=== PATIENT | female | born 1975 | race Caucasian/White ===

== ENCOUNTER 2022-06-10 04:04 | Inpatient (IN) | payer OTHER, SELFPAY ==
[2022-06-10] VITALS (8 sets, daily range): BP systolic 120–164; BP diastolic 64–92; PULSE 63–78; RESP 16–20; TEMP 36.1–37.1; O2SAT 96–98; BMI 37.1
--- NOTE | 2022-06-10 04:05 | EKG12_ITS ---
Test Reason : CP ADMIT Blood Pressure : / mmHG Vent. Rate : 068 BPM Atrial Rate : 068 BPM P-R Int : 140 ms QRS Dur : 088 ms QT Int : 408 ms P-R-T Axes : 061 039 056 degrees QTc Int : 433 ms Normal sinus rhythm Normal ECG No previous ECGs available Confirmed by DIAMOND MARTE, RAFAELA ([id number]), material expeditor SHIRA ROBLERO ([id number]) on 06/15/2022 10:50:03 AM Referred By: Confirmed By:RAFAELA FIELDS MD
--- NOTE | 2022-06-10 05:34 | CT_ITS ---
EXAM: CT HEAD WITHOUT INTRAVENOUS CONTRAST CLINICAL INDICATION: vision changes, severe headache TECHNIQUE: Multiple axial images were obtained of the head without intravenous contrast. This CT exam was performed using one or more of the following dose reduction techniques: automated exposure control, adjustment of the mA and/or kV according to patient size, and/or use of iterative reconstruction technique. This report was created using [employer] report generation technology. COMPARISON: None. FINDINGS: BRAIN AND EXTRA-AXIAL SPACES: Unremarkable. No intra- or extra-axial hemorrhage. No evidence of acute infarct. No intracranial mass or mass effect. There is preservation of the butcher/white matter interface. Posterior fossa structures are unremarkable. Ventricles are appropriate for age. No hydrocephalus. Basal cisterns are patent. BONES/JOINTS: Unremarkable. No discrete lytic or blastic abnormalities. SINUSES: Unremarkable as visualized. Clear. MASTOID AIR CELLS: Unremarkable. Clear. ORBITS: Visualized globes, extraocular muscles, optic nerves and retrobulbar fat appear unremarkable. CT/Brain/Head without Contrast IMPRESSION: Negative head/brain CT without intravenous contrast. Electronically Signed: Wally Matthew MD at 6:40 EST ,
--- NOTE | 2022-06-10 05:55 | ECHOD_ITS ---
Reason For Study: NSTEMI Procedure This was a 2D Doppler, Color Flow transthoracic echocardiogram. The study was technically difficult. Contrast injection was performed. Exam performed portable in patient room. Left Ventricle Normal left ventricle. The estimated ejection fraction is 55-60 %. Right Ventricle There is a mass in the right ventricle. Echogenic moderate size mass attached to RV free wall. Normal systolic function. Atria Normal left atrium. Normal right atrium. Mitral Valve The mitral valve is structurally normal. No prolapse or stenosis seen. Trivial mitral valve insufficiency. Tricuspid Valve Normal tricuspid valve. Aortic Valve Normal aortic valve. Pulmonic Valve The pulmonic valve is not well visualized. Great Vessels Normal aortic root. Pericardium/Pleural No pericardial effusion. There is no pleural effusion. Medication Diluted definity 1.5ml given slow IV push to enhance endocardial definition. MMode/2D Measurements & Calculations LVIDd: 5.0 cm IVSd: 1.1 cm Ao root diam: 3.0 cm LVIDs: 3.3 cm LVPWd: 1.1 cm RVDd: 3.7 cm FS: 33.7 % LAV(MOD-sp4): 63.2 ml LVAd ap4: 41.7 cm2 SV(MOD-sp4): 126.8 ml LVLd ap4: 8.7 cm EDV(MOD-sp4): 165.6 ml EDV(sp4-el): 169.9 ml LVAs ap4: 17.6 cm2 LVLs ap4: 6.8 cm ESV(MOD-sp4): 38.8 ml ESV(sp4-el): 38.8 ml EF(MOD-sp4): 76.6 % EF(sp4-el): 77.2 % SV(sp4-el): 131.1 ml LA A4 area: 22.0 cm2 LA dimension(2D): 3.9 cm RA A4 area: 20.8 cm2 Time Measurements MV dec time: 0.19 sec Doppler Measurements & Calculations MV E max [place]: 96.2 cm/sec Lat Peak E' [place]: 11.4 cm/sec Med Peak E' [place]: 14.9 cm/sec MV A max [place]: 60.8 cm/sec E/E' lat: 8.4 E/E' med: 6.5 MV E/A: 1.6 MV V2 max: 104.6 cm/sec MV dec slope: 510.4 cm/sec2 Ao V2 max: 149.2 cm/sec MV max P.4 mmHg Ao max P.9 mmHg MV V2 mean: 57.4 cm/sec Ao V2 mean: 95.9 cm/sec MV mean P.6 mmHg Ao mean P.3 mmHg MV V2 VTI: 33.8 cm Ao V2 VTI: 30.7 cm AV (velocity ratio): 0.83 LV V1 max: 104.4 cm/sec PA V2 max: 105.5 cm/sec TR max [place]: 264.1 cm/sec LV V1 max P.4 mmHg PA V2 mean: 79.9 cm/sec TR max P.9 mmHg LV V1 mean P.4 mmHg LV V1 mean: 71.4 cm/sec LV V1 VTI: 25.5 cm ECHO/Echo Complete W/ Contrast Interpretation Summary The estimated ejection fraction is 55-60 %. Echogenic moderate size mass attached to RV free wall Recommendation: Consider to evaluate with WILLIAM Ordering Physician: Emma Barros Performed By: Danielle Trujillo RCS
--- NOTE | 2022-06-10 06:26 | PCM.HP.STD ---
HPI - General General Date of Admission: 06/10/22 Date of Service: 06/10/22 Chief Complaint: Chest pain HPI Narrative The patient is a 46 y/o F w/ PMHx: Obesity, Light tobacco use (1 pack/week), recent Heavier EtOH intake over the last several months secondary to stress with ongoing divorce proceedings who reports not having been to a physician for evaluation since the of her son 14 years prior who presented initially to [facility] on 06/09/22 with history of chest discomfort, intermittent, midsternal with radiation to the neck and LUE with associated diaphoresis, described as an ache, rated 8-10/10 when occurring, noted to be intermittent x 2 weeks; however more severe with two episodes on day of OSH ED evaluation with one at 5 pm and another episode at 8:30 pm prompting EMS call. She also reports intermittent severe headache also over the last 2 weeks with vision changes on day of OSH ED presentation which were transient, reported as blurred and corrected. The headaches are severe, aching, holocephalic. EMS administered NG and zofran in route with complete resolution of her discomfort upon her presentation to their facility. At the OSH she reports having another episode following her CT scan being obtained. She reports upon presentation to [facility] on 06/10/22 being chest pain free and headache free currently. OSH ED facility work-up included: VS: 100 kg, BMI 32, VS 186/128, 80, 98.9, 94% on RA, 20 CXR: No acute cardiopulmonary findings. CTPA: No evidence of acute PE or dissection, no acute cardiopulmonary findings. EKG: SR without acute evidence of ischemia x 2. TSH 3.80 (mildly elevated) w/ follow-up FT4 8.7 (normal range) and T3U 33 (normal range), SARS COVID negative, BNP 329, CBC w/ WBC 7.1, Hgb 14.7, Plts 346 without shift, D-dimer 311, HS troponin 203.9, CMP with glucose 113 otherwise unremarkable with Na 138, K 3.5, BUN/Cr 17/0.82, unremarkable hepatic profile. Medications administered in the ED at OSH: Therapeutic lovenox x 1, zofran 4 mg. [facility] Medical History Heavy alcohol consumption Obesity Tobacco use Home Medications NK 06/10/22 [History Last Taken Unknown] Allergy/AdvReac Type Severity Reaction Status Date / Time No Known Allergies Allergy Verified 06/10/22 04:04 Family History (Updated 06/10/22 @ 05:[address] Emma Barros MD) Mother CAD (coronary artery disease) Hypertension Myocardial infarction Family History other other (Patient does not know any of her paternal family history, notes he passed when she was 18-19.) Surgical History (Updated 06/10/22 @ 05:[address] Emma Barros MD) Hx of cholecystectomy Hx of tonsillectomy Social History (Updated 06/10/22 @ 05:[address] Emma Barros MD) household members: other details: Recent ongoing divorce, currently her 14 year old son lives with her. Smoking Status: Light Smoker (<10/day) alcohol intake: current alcohol intake frequency: 0-2 drinks per day Alcohol type: wine and hard liquor details: With divorce stress, notes often 2-3 drinks/day x 5 days/wk. substance use type: does not use ROS ROS Narrative Admission Review of Systems: CONSTITUTIONAL: No weight loss, fever, chills, + weakness or fatigue. HEENT: + Transient blurred vision, headaches. Eyes: No double vision or yellow sclerae. Ears, Nose, Throat: No hearing loss, sneezing, congestion, runny nose or sore throat. SKIN: No rash or itching, lesions, wounds. CARDIOVASCULAR: + Chest pain, No palpitations, edema, orthopnea, syncopal events. RESPIRATORY: No shortness of breath, cough or sputum, wheezing, hemoptysis. GASTROINTESTINAL: + anorexia, nausea without vomiting, No diarrhea, abdominal pain, melena, BRBPR. GENITOURINARY: No dysuria, frequency, urgency or retention. NEUROLOGICAL: + headache, transient vision blurriness, dizziness, No syncope, paralysis, ataxia, numbness or tingling in the extremities, focal weakness, change in bowel or bladder control, seizure. MUSCULOSKELETAL: + muscle, back pain, joint pain or stiffness. HEMATOLOGIC: No anemia, bleeding or bruising. LYMPHATICS: No enlarged nodes. No history of splenectomy. PSYCHIATRIC: + Suspected underlying depression and anxiety. ENDOCRINOLOGIC: + reports of sweating, cold or heat intolerance. No polyuria or polydipsia. ALLERGIES: No history of asthma, hives, eczema or rhinitis. Physical Exam Narrative Physical Examination: General: Awake, alert, oriented x 3 and cooperative, seated upright in the PCU bed in no apparent distress; however, crying following discussions about current health status, admits increased stress with recent divorce proceedings. Skin: Normal color, normal turgor, no icterus, no cyanosis. HEENT: AT/NC, EOMI, PERRLA, MMM, mild narrowing junction bilaterally, no carotid bruits or JVD noted. Lungs: CTA bilaterally, moderate effort, mild decrease BL bases, no rales, ronchi or wheezing. Heart: Regular rate and rhythm; no gallop, rub audible. Abdomen: Soft, obese, NTTP, ND, distant normal BS, no HSM. Extremities: No cyanosis, clubbing, or edema. Neurological: Patient awake, alert, oriented as noted, cognitive function intact; pupils equally reactive to light and accommodation, cranial nerves II-XII grossly normal, moving all 4 extremities, no focal deficits, strength intact. Psychiatric: Affect appears fatigued, tearful with discussions, do suspect underlying anxiety and depression. Assessment & Plan Assessment/Plan (1) NSTEMI, initial episode of care: PLAN: Plan The patient is a 46 y/o F w/ PMHx: Obesity, Light tobacco use (1 pack/week), recent Heavier EtOH intake over the last several months secondary to stress with ongoing divorce proceedings who reports not having been to a physician for evaluation since the of her son 14 years prior who presented initially to [facility] on 06/09/22 with history of chest discomfort, intermittent, midsternal with radiation to the neck and LUE with associated diaphoresis, described as an ache, rated 8-10/10 when occurring, noted to be intermittent x 2 weeks; however more severe with two episodes on day of OSH ED evaluation with one at 5 pm and another episode at 8:30 pm prompting EMS call. #1. Chest Pain w/ Acute NSTEMI: EKG in ED w/ sinus rhythm with no acute evidence of ischemia x2, CXR w/ no acute cardiopulmonary findings, CTPA with no acute evidence of pulmonary embolism or dissection. Trop elevated, 203.9. Will admit to PCU, maintain on a monitored bed, continue serial cardiac enzymes and EKGs. Obtain magnesium level upon admission. Patient administered therapeutic Lovenox x1 at outside facility prior to transition, will continue pending cardiology assessment. Will maintain n.p.o. status with judicious IV fluids. Continue medical management w/ asa, add moderate dose BB, will also add moderate dose CARLOS ALBERTO inhibitor given significant hypertension upon outside facility presentation, add high-dose statin w/ AM FLP. May need further blood pressure adjustments pending further blood pressure trending. Echocardiogram requested. Given headache history and vision changes to be cautious will obtain CT head, suspect likely related with her hypertension which has been untreated. ASA, NG, morphine. #2. Elevated BP of hypertensive diagnosis: As noted will place on moderate dose beta-abelino therapy given acute presentation with NSTEMI in addition to a moderate dose CARLOS ALBERTO inhibitor given notable blood pressure elevation at outside facility however will further adjust and alter pending, as needed IV hydralazine. Given headache history and vision changes to be cautious will obtain CT head, suspect likely related with her hypertension which has been untreated. #3. Subclinical hypothyroidism: At outside facility for unclear reasons they did obtain a TSH which was mildly elevated at 3.80 however free T4 and T3 were normal levels consistent with subclinical hypothyroidism, given her acute presentation with NSTEMI will recommend that she follow-up with PCP and have labs reassessed outpatient. #4. Heavier EtOH Intake: Increased intake over the last several months with divorce proceedings. Discussed appropriate amount for patient and encouraged strongly heathier methods of dealing with her stress including lifestyle/diet changes as well as counseling and treatment of depression/anxiety likely underlying. #5. Tobacco use: Patient with a tobacco use history reporting approximately 1 pack lasting her 1 week although she does report increased smoking with increased alcohol consumption ongoing since she was a teen. Encouraged cessation, inpatient consultation per RT, NR if desired. #6. Obesity: Weight loss and lifestyle changes encouraged. #7. DVT prophylaxis: SCDs, continue therapeutic Lovenox. Admission Evaluation Time spent evaluating chart, patient history, patient evaluation, care planning and discussion with specialists: 76 minutes. Charges/Coding Visit Charges Inpatient E&M: 86395 Init Hosp L3
[2022-06-10] MEDS: 0.9% Normal Saline 1,000 ML 100 ML IV (06:45)
[2022-06-10] MEDS: Metoprolol Tartrate 25 MG Tablet PO ×2 (06:46→22:00)
[2022-06-10 07:08] LABS: Absolute Lymphocyte Count 2.39 X10^3/uL (0.83-4.51); Absolute Neutrophil Count 3.7 X10^3/uL (2.0-7.7); Basophil# 0.05 X10^3/uL; Basophil% 0.7 % (0-1); Eosinophil# 0.16 X10^3/uL; Eosinophils% 2.4 % (0-5); Hematocrit 40.8 % (37-47); Hemoglobin 13.2 g/dL (12.0-15.0); Lymphocyte # 2.39 X10^3/ul (0.83-4.51); Lymphocyte % 35.2 % (19-41); Mean Corp Hgb Conc 32.4 g/dL (32-36); Mean Corpuscular Hgb 32.7 pg (27.0-32.0); Mean Platelet Vol. 9.4 fl (6.2-12.0); Monocyte# 0.52 X10^3/uL; Monocyte% 7.7 % (0-10); NRBC Flagged by Analyzer 0 % (0-5); Neutrophil # 3.66 X10^3/uL (2.7-7.7); Neutrophil % 53.9 % (47-70); Platelet Count 269 K/mm3 (150-450); RBC Distribution Width CV 15.2 % (11.6-14.6); RBC Distribution Width SD 57.3 fl (35.1-43.9); Red Blood Count 4.04 M/mm3 (4.2-5.4); White Blood Count 6.8 K/mm3 (4.4-11.0)
[2022-06-10 07:52] LABS: Phosphorus 3.3 mg/dL (2.5-4.9)
[2022-06-10 07:53] LABS: ALB/GLOB Ratio 1.1 RATIO (0.9-2.4); AST(SGOT) 20 U/L (15-37); Alanine Aminotransfer ALT/SGPT 30 U/L (13-56); Albumin, Serum 3.9 g/dL (3.2-5.0); Alkaline Phosphatase 70 U/L (45-117); Anion Gap 10 (5-15); BUN 16 mg/dL (7-18); Chloride 107 mmol/L (98-107); Creatinine, Serum 0.76 mg/dL (0.55-1.02); EST Glomerular Filtration Rate 86 mL/min (>60); Est Glom Filt Rate - Afr Amer 105 mL/min (>60); Estimated Creatinine Clearance 95.63 ml/min; Globulin 3.4 g/dL (2.2-4.2); Glucose 105 mg/dL (74-106); Magnesium 2.3 mg/dL (1.6-2.6); Protein, Total 7.3 g/dL (6.4-8.2); Sodium Level 138 mmol/L (136-145); Troponin-I HS 187 pg/mL (3.0-54.0)
[2022-06-10 08:55] LABS: Troponin-I HS 172 pg/mL (3.0-54.0)
[2022-06-10 09:46] LABS: Cholesterol 168 mg/dL (200); High Density Lipoprotein 35 mg/dL; Triglycerides 194 mg/dL; Very Low Density Lipoprotein 39 mg/dL (5-40)
[2022-06-10] MEDS: Enoxaparin 100 MG/ML Syringe SC (10:13)
[2022-06-10] MEDS: Lisinopril 10 MG Tablet PO (10:13)
[2022-06-10] MEDS: Aspirin E.C. 81 MG Tablet PO (10:13)
--- NOTE | 2022-06-10 11:40 | CM.ED ---
Per RN patient has no PCP and reports recent alcohol use due to divorce. SW met with patient briefly. Patient was provided with PCP list and advised that [facility] is taking new patients. SW asked patient if she wanted any AOD resources or counseling resources and patient declined any resources for AOD or counseling. Per patient will be here through the weekend. Mile MUÑOZ
--- NOTE | 2022-06-10 12:04 | CASEMGMT ---
GUERLINE RUDD PIPE AND TEST SUPERVISOR CM to room to meet with patient for initial transition planning/care coordination assessment. GUERLINE RUDD introduced self and role at [facility]. Pt voices understanding and consents to assessment at this time. Pt resting in bed in no distress at this time. Mother, father, and grandson @ bedside and pt agreeable to them being present during assessment. Pt is A/O at this time and answers all questions appropriately. Care providers, pharmacy, and demographics verified/updated at this time. PCP: No PCP. BUDDY has provided pt w/list of providers. Specialists: None Preferred Pharmacy: [facility] Retail Insurance: [facility] Prescription Benefit: Yes Living Will/HPOA: Pt does not currently have LW/HCPOA. Pt states she is legally . Pt made aware that her would be her medical decision maker, should she be unable to make decisions, unless POA has been completed designating someone else. Pt states she would like to complete AD while @ [facility]. Mile GOODWIN, made aware. LNOK: (legally ), parents: Chun and Deb Hurtado Living Arrangements: Lives w/parents, brother, and son in 2-story home. Independent. Transportation: Pt states drives self and states no transportation concerns at this time. DME: Denies using any DME HHC/SNF: No hx of either. No needs identified. Pt wishes to return home and states has no concerns with going home at time of discharge. CM to follow for any discharge planning/needs. Pt voices no further concerns/needs at this time. Advised pt to ask for CM if any further questions/concerns/needs arise. Voices understanding. PLAN: Home Iam CLINE RN, CM
[2022-06-10 13:38] LABS: Troponin-I HS 153 pg/mL (3.0-54.0)
[2022-06-10] MEDS: Ondansetron 4 MG/2 ML Vial IV (13:50)
[2022-06-10] MEDS: 0.9% Saline Lock 10 ML Syringe IV ×2 (13:51→22:00)
--- NOTE | 2022-06-10 13:56 | CASEMGMT ---
BUDDY was advised by GUERLINE RUDD that patient wants advanced directives. BUDDY printed out [facility] advanced directives packet. As patient did have visitors BUDDY advised that the paperwork could be completed later. Mlie MUÑOZ
--- NOTE | 2022-06-10 15:30 | CON.PCM.CA_ITS ---
Assessment & Plan Assessment/Plan (1) Subclinical hypothyroidism: (2) Elevated BP without diagnosis of hypertension: (3) NSTEMI, initial episode of care: PLAN: Plan 46-year-old patient with symptoms of chest pain, retrosternal Associated with diaphoresis, nausea. Chest pain improved since admission. This morning she was nauseated she was given some Zofran which relieved her symptoms. Patient with history of tobacco use. And recently had heavier ethanol intake, patient has been under stress.-, Recently Cardiac exam essentially normal Cardiovascular system recommendations; 1. Cardiopulmonary Covid with high sensitive troponin elevated Patient currently on medical treatment for non-STEMI with Lovenox, aspirin, atorvastatin Beta-abelino metoprolol hydralazine, lisinopril for blood pressure control. Patient remained stable clinically no further episode of chest pain. Will be evaluated further with left heart catheterization/right radial artery approach on Sunday. 2. Abnormal echocardiogram with evidence of echogenic mass moderate in size noted in the RV. Will evaluate further with WILLIAM. 3. I discussed cardiac care plan with the patient, nursing staff. HPI Consult Data Date of Consult: 06/10/22 HPI Narrative Reason for Consultation: Patient with chest pain/non-STEMI HPI Narrative: LIZ VILA, is a 46 F who presents [facility] Medical History Heavy alcohol consumption Obesity Tobacco use Home Medications NK 06/10/22 [History Last Taken Unknown] Allergy/AdvReac Type Severity Reaction Status Date / Time No Known Allergies Allergy Verified 06/10/22 04:04 Family History (Updated 06/10/22 @ 05:[address] Emma Barros MD) Mother CAD (coronary artery disease) Hypertension Myocardial infarction Family History other Surgical History (Updated 06/10/22 @ 05:[address] Emma Barros MD) Hx of cholecystectomy Hx of tonsillectomy Social History (Updated 06/10/22 @ 05:[address] Emma Barros MD) household members: other details: Recent ongoing divorce, currently her 14 year old son lives with her. Smoking Status: Light Smoker (<10/day) alcohol intake: current alcohol intake frequency: 0-2 drinks per day Alcohol type: wine and hard liquor details: With divorce stress, notes often 2-3 drinks/day x 5 days/wk. substance use type: does not use Physical Exam Cardio Cardio Narrative: Cardiac rhythm is normal sinus rhythm Cardiovascular exam S1-S2 regular No systolic or diastolic murmur Chest examination clear to auscultation bilateral. Examination lower extremity no clubbing no cyanosis no lower extremity edema. Risk Stratification Risk Stratification Applicable: Yes Age >/= 65: No >/= 3 CAD Risk Factors (HTN, HLD, DM, family hx of CAD, or current smoker): Yes Aspirin Use in the Past 7 Days: Yes Severe Angina (>/= episodes in 24 hours): Yes EKG ST Changes >/= 0.5mm: No Positive Cardiac Marker: Yes JENNIFER Risk Stratification Score: 4 JENNIFER % Risk: 20% Risk Objective Data Vital Signs: Vital Signs Temp Pulse Resp BP Pulse Ox O2 Del Method 98.7 F 64 16 148/75 H 97 Room Air 06/10/22 10:05 06/10/22 10:05 06/10/22 10:05 06/10/22 10:05 06/10/22 10:05 06/10/22 14:00 Oxygen Delivery Method Room Air Weight: 251 lb 12.286 oz Body Mass Index (BMI) 37.1 Intake & Output: Intake and Output for Last 24 Hours 06/08/22 06/09/22 06/10/22 23:59 23:59 23:59 Intake Total 400 / 400 Balance 400 / 400 Lab / Micro Data Result Diagrams: 06/10/22 06:10 06/10/22 06:10 Labs: Laboratory Results - last 24 hr 06/10/22 06:10: Sodium 138, Potassium 4.0, Chloride 107, Carbon Dioxide 21.0, Anion Gap 10, BUN 16, Creatinine 0.76, Estim Creat Clear Calc 95.63, Est GFR (MDRD) Af Amer 105, Est GFR (MDRD) Non-Af 86, BUN/Creatinine Ratio 21.0 H, Glucose 105, Calcium 9.0, Magnesium 2.3, Total Bilirubin 0.80, AST 20, ALT 30, Alkaline Phosphatase 70, Troponin I High Sens 187 H*, Total Protein 7.3, Albumin 3.9, Globulin 3.4, Albumin/Globulin Ratio 1.1 06/10/22 06:10: WBC 6.8, RBC 4.04 L, Hgb 13.2, Hct 40.8, MCV 101.0 H, MCH 32.7 H , MCHC 32.4, RDW Std Deviation 57.3 H, RDW Coeff of Alyse 15.2 H, Plt Count 269, MPV 9.4, Immature Gran % (Auto) 0.100, Neut % (Auto) 53.9, Lymph % (Auto) 35.2, [place] % (Auto) 7.7, Eos % (Auto) 2.4, Baso % (Auto) 0.7, Absolute Neuts (auto) 3.7, Absolute Lymphs (auto) 2.39, Nucleated RBC % 0 06/10/22 06:10: Phosphorus 3.3 06/10/22 08:00: Troponin I High Sens 172 H* 06/10/22 08:00: Triglycerides 194, Cholesterol 168, LDL Cholesterol 94, VLDL Cholesterol 39, HDL Cholesterol 35 L 06/10/22 12:28: Troponin I High Sens 153 H* Cardiology Labs/Tests 06/10/22 06:10: Sodium 138, Potassium 4.0, Chloride 107, Carbon Dioxide 21.0, Anion Gap 10, BUN 16, Creatinine 0.76, Est GFR (MDRD) Af Amer 105, Est GFR (MDRD) Non-Af 86, BUN/Creatinine Ratio 21.0 H, Glucose 105, Calcium 9.0, Magnesium 2.3, Total Bilirubin 0.80 06/10/22 06:10: WBC 6.8, RBC 4.04 L, Hgb 13.2, Hct 40.8, MCV 101.0 H, MCH 32.7 H , MCHC 32.4, Plt Count 269, MPV 9.4, Immature Gran % (Auto) 0.100, Neut % (Auto) 53.9, Lymph % (Auto) 35.2, [place] % (Auto) 7.7, Eos % (Auto) 2.4, Baso % (Auto) 0.7, Absolute Neuts (auto) 3.7, Nucleated RBC % 0 06/10/22 06:10: Phosphorus 3.3 06/10/22 08:00: Triglycerides 194, Cholesterol 168, LDL Cholesterol 94, VLDL Cholesterol 39, HDL Cholesterol 35 L Rhythm: Normal sinus rhythm EKG: Normal sinus rhythm, no ST?abnormality noted ECHO % LV function preserved, moderate sized echogenic mass noted in the free RV wall Radiography Diagnostic Testing: Radiology Impression Brain CT 06/10/22 05:34 IMPRESSION: Negative head/brain CT without intravenous contrast. Electronically Signed: Wally Matthew MD at 6:40 EST , Echocardiogram 06/10/22 05:55 Interpretation Summary The estimated ejection fraction is 55-60 %. Echogenic moderate size mass attached to RV free wall Recommendation: Consider to evaluate with WILLIAM Ordering Physician: Emma Barros Performed By: Danielle Trujillo RCS
--- NOTE | 2022-06-10 18:26 | PCM.HOSP.N ---
Hospitalist Note Patient was seen and examined today, at the time my examination she had a slight amount of chest discomfort which resolved during the time I was in the room. I talked with cardiology about her care today, she will remain on subcu Lovenox, a beta-abelino, a statin, and a baby aspirin for now, the plan is for the patient undergo a cardiac catheterization this Sunday. Patient had an echocardiogram today which did not show any evidence of impaired EF or significant valvular abnormality.
[2022-06-10] MEDS: Atorvastatin Calcium 80 MG Tablet PO (22:00)
[2022-06-11] VITALS (7 sets, daily range): BP systolic 123–173; BP diastolic 75–108; PULSE 54–83; RESP 16–18; TEMP 36.6–37.1; O2SAT 95–100
[2022-06-11] MEDS: 0.9% Saline Lock 10 ML Syringe IV ×4 (08:35→14:07)
--- NOTE | 2022-06-11 09:12 | EKG12_ITS ---
Test Reason : AM EKG Blood Pressure : / mmHG Vent. Rate : 073 BPM Atrial Rate : 073 BPM P-R Int : 146 ms QRS Dur : 090 ms QT Int : 382 ms P-R-T Axes : 053 030 019 degrees QTc Int : 420 ms Normal sinus rhythm with sinus arrhythmia Nonspecific ST abnormality Abnormal ECG When compared with ECG of 11-JUN-2022 09:13, MANUAL COMPARISON REQUIRED, DATA IS UNCONFIRMED Confirmed by DIAMOND MARTE, RAFAELA ([id number]), acquisition editor SHIRA ROBLERO ([id number]) on 06/15/2022 10:46:00 AM Referred By: Confirmed By:RAFAELA FIELDS MD
[2022-06-11] MEDS: Ondansetron 4 MG/2 ML Vial IV ×2 (09:28→11:10)
[2022-06-11] MEDS: LORazepam 2 MG/ML Syringe 0.5 MG IV (11:10)
--- NOTE | 2022-06-11 12:56 | PCM.PN.CARD ---
Objective Data Vital Signs: Vital Signs Temp Pulse Resp BP Pulse Ox O2 Del Method 98.1 F 54 L 16 173/79 H 100 Room Air 06/11/22 11:20 06/11/22 11:20 06/11/22 11:20 06/11/22 11:20 06/11/22 11:20 06/11/22 11:20 Oxygen Delivery Method Room Air Weight: 253 lb 8.505 oz Body Mass Index (BMI) 37.1 Intake & Output: Intake and Output for Last 24 Hours 06/09/22 06/10/22 06/11/22 23:59 23:59 23:59 Intake Total 1400 / 1400 Balance 1400 / 1400 Lab / Micro Data Result Diagrams: 06/10/22 06:10 06/10/22 06:10 Labs: Laboratory Results - last 24 hr 06/10/22 12:28: Troponin I High Sens 153 H* Micro: Microbiology 06/11/22 11:15 Nasal Secretion SARS-CoV-2 Antigen (Rapid) - Final Cardiology Labs/Tests Rhythm: EKG: Repeat EKG showed no significant change from prior with normal sinus No ST?the abnormalities noted on repeat EKG today ECHO: LV function preserved, 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 Physical Exam Cardio Cardio Narrative: Cardiac rhythm remains sinus Cardiovascular exam S1-S2 regular Chest exam clear to auscultation bilateral Examination lower extremity no lower extremity edema noted Pedal pulses palpable Assessment & Plan Assessment/Plan (1) Elevated BP without diagnosis of hypertension: (2) NSTEMI, initial episode of care: PLAN: Plan This patient has nausea vomiting and diarrhea today Mild chest discomfort which resolved I reviewed the current medication Cardiac care plan recommendations; This patient has been under stress and she had history of smoking Her cardiac biomarkers has been elevated with high sensitive troponins with a clinical diagnosis of non-ST elevation ND. 1. Continue the current medical treatment 2. We will proceed with left heart cath/WILLIAM on Sunday.
[2022-06-11] MEDS: proCHLORPERazine 10 MG/2 ML Vial IV (14:04)
--- NOTE | 2022-06-11 17:02 | PN.HOSP_ITS ---
Subjective Subjective Patient was seen and examined today, she complains of some nausea and vomiting today along with some diarrhea to nursing, she is scheduled to undergo a heart catheterization tomorrow, I talked briefly with cardiology about her care today. Objective Data Objective Data Vital Signs: Vital Signs Temp Pulse Resp BP Pulse Ox O2 Del Method 98.1 F 62 16 161/75 H 95 Room Air 06/11/22 14:12 06/11/22 14:12 06/11/22 14:12 06/11/22 14:12 06/11/22 14:12 06/11/22 14:12 Oxygen Delivery Method Room Air Weight: 115 kg Body Mass Index (BMI) 37.1 Intake & Output: Intake and Output for Last 24 Hours 06/09/22 06/10/22 06/11/22 23:59 23:59 23:59 Intake Total 1400 / 1400 240 / 240 Balance 1400 / 1400 240 / 240 Lab / Micro Data Result Diagrams: 06/10/22 06:10 06/10/22 06:10 Micro: Microbiology 06/11/22 11:15 Nasal Secretion SARS-CoV-2 Antigen (Rapid) - Final Physical Exam Const alert, oriented x3, no apparent distress and healthy appearing General Appearance: cooperative, well kempt and well developed Orientation / Consciousness: awake, oriented to person, oriented to place and oriented to time HEENT normocephalic and moist oral mucous membranes Eyes PERRL, EOMs intact bilaterally and conjunctivae normal Neck supple, no JVD, thyroid normal and no carotid bruits General: trachea midline Resp normal respiratory effort and clear to auscultation bilaterally Auscultation: Negative for rales, rhonchi or wheezes Cardio regular rate, regular rhythm, no murmurs, no rub and no gallops GI normal to inspection, nondistended, normoactive bowel sounds, soft to palpation, non-tender and non-distended Extremity no clubbing, cyanosis or edema Skin no rashes or lesions noted General Skin Exam: no breakdown Neuro oriented x3, CN's II-XII intact bilaterally, no focal motor deficits and no sensory deficits noted Sensorium / Orientation: awake and alert Speech: speech normal Psych affect normal Assessment & Plan Assessment/Plan (1) NSTEMI, initial episode of care: PLAN: Plan 1. [id number] will remain on her present medications, I discussed her ca re with cardiology today, patient will undergo a cardiac catheterization tomorrow #2 nausea and vomiting-etiology unclear, patient will be treated symptomatically, she also had 1 episode of diarrhea today. #3 elevated blood pressure-we will monitor patient's blood pressure today, I do not feel that she needs additional medications for this at this time Total clinical time spent by myself addressing the patient's medical issues, reviewing all the data, and collaborating with patient's care team: 35 minutes Charges/Coding Visit Charges Inpatient E&M: 98628 Subs Hosp L2
[2022-06-11] MEDS: Metoprolol Tartrate 25 MG Tablet PO (21:57)
[2022-06-11] MEDS: Atorvastatin Calcium 40 MG Tablet PO (21:58)
[2022-06-11] MEDS: Enoxaparin 100 MG/ML Syringe SC (21:58)
[2022-06-12] VITALS (12 sets, daily range): BP systolic 81–151; BP diastolic 55–98; PULSE 59–85; RESP 14–20; TEMP 36.4–36.9; O2SAT 93–98
[2022-06-12] MEDS: 0.9% Saline Lock 10 ML Syringe IV (03:49)
--- NOTE | 2022-06-12 05:55 | EKG12_ITS ---
Test Reason : CP Blood Pressure : / mmHG Vent. Rate : 057 BPM Atrial Rate : 057 BPM P-R Int : 150 ms QRS Dur : 090 ms QT Int : 410 ms P-R-T Axes : 040 028 028 degrees QTc Int : 399 ms Sinus bradycardia Otherwise normal ECG When compared with ECG of 10-JUN-2022 05:30, MANUAL COMPARISON REQUIRED, DATA IS UNCONFIRMED Confirmed by DIAMOND MARTE, RAFAELA ([id number]), telegraph editor SHIRA ROBLERO ([id number]) on 06/15/2022 10:47:48 AM Referred By: LEONIDES Confirmed By:RAFAELA FIELDS MD
[2022-06-12 06:15] LABS: Absolute Lymphocyte Count 1.39 X10^3/uL (0.83-4.51); Absolute Neutrophil Count 9.9 X10^3/uL (2.0-7.7); Basophil# 0.03 X10^3/uL; Basophil% 0.3 % (0-1); Hemoglobin 15.8 g/dL (12.0-15.0); Lymphocyte # 1.39 X10^3/ul (0.83-4.51); Lymphocyte % 11.7 % (19-41); Mean Corp Hgb Conc 31.6 g/dL (32-36); Mean Corpuscular Hgb 33.4 pg (27.0-32.0); Mean Corpuscular Volume 105.7 fL (81-99); Mean Platelet Vol. 9.8 fl (6.2-12.0); Monocyte# 0.52 X10^3/uL; Monocyte% 4.4 % (0-10); NRBC Flagged by Analyzer 0 % (0-5); Neutrophil # 9.91 X10^3/uL (2.7-7.7); Neutrophil % 83.1 % (47-70); Platelet Count 295 K/mm3 (150-450); RBC Distribution Width CV 14.8 % (11.6-14.6); RBC Distribution Width SD 58.5 fl (35.1-43.9); Red Blood Count 4.73 M/mm3 (4.2-5.4); White Blood Count 11.9 K/mm3 (4.4-11.0)
[2022-06-12] MEDS: Lisinopril 10 MG Tablet PO (06:21)
[2022-06-12] MEDS: Aspirin E.C. 81 MG Tablet PO (06:21)
[2022-06-12] MEDS: Metoprolol Tartrate 25 MG Tablet PO (06:21)
[2022-06-12 06:52] LABS: ALB/GLOB Ratio 1.2 RATIO (0.9-2.4); AST(SGOT) 22 U/L (15-37); Alanine Aminotransfer ALT/SGPT 35 U/L (13-56); Albumin, Serum 4.6 g/dL (3.2-5.0); Alkaline Phosphatase 74 U/L (45-117); Anion Gap 14 (5-15); BUN 16 mg/dL (7-18); BUN/Creat Ratio 20.6 RATIO (10-20); Calcium,Total 9.9 mg/dL (8.5-10.1); Chloride 101 mmol/L (98-107); Creatinine, Serum 0.78 mg/dL (0.55-1.02); EST Glomerular Filtration Rate 84 mL/min (>60); Est Glom Filt Rate - Afr Amer 102 mL/min (>60); Estimated Creatinine Clearance 93.18 ml/min; Glucose 112 mg/dL (74-106); Potassium 4.1 mmol/L (3.5-5.1); Protein, Total 8.6 g/dL (6.4-8.2); Sodium Level 135 mmol/L (136-145)
[2022-06-12 06:56] LABS: Prothrombin Time (Protime)PT. 13.1 SECONDS (11.7-14.9)
[2022-06-12 06:57] LABS: Partial Thromboplast Time 42.6 Seconds (24.1-36.2)
[2022-06-12] MEDS: 0.9% Normal Saline 1,000 ML 15 ML IV (07:48)
[2022-06-12] MEDS: proCHLORPERazine 10 MG/2 ML Vial 5 MG IV (07:49)
--- NOTE | 2022-06-12 08:42 | PN.CARD_ITS ---
Subjective Subjective The patient was seen and evaluated. Appears to be doing well. No complaints. Underwent cardiac catheterization today. Objective Data Vital Signs: Vital Signs Temp Pulse Resp BP Pulse Ox O2 Del Method 97.6 F L 73 18 133/72 H 94 Room Air 06/12/22 06:14 06/12/22 06:21 06/12/22 06:14 06/12/22 06:14 06/12/22 06:14 06/12/22 08:05 Oxygen Delivery Method Room Air Weight: 249 lb 1.957 oz Body Mass Index (BMI) 37.1 Intake & Output: Intake and Output for Last 24 Hours 06/10/22 06/11/22 06/12/22 23:59 23:59 23:59 Intake Total 1400 / 1400 240 / 240 Balance 1400 / 1400 240 / 240 Lab / Micro Data Result Diagrams: 06/12/22 05:22 06/12/22 05:22 Labs: Laboratory Results - last 24 hr 06/12/22 05:22: WBC 11.9 H, RBC 4.73, Hgb 15.8 H, Hct 50.0 H, MCV 105.7 H, MCH 33.4 H, MCHC 31.6 L, RDW Std Deviation 58.5 H, RDW Coeff of Alyse 14.8 H, Plt Count 295, MPV 9.8, Immature Gran % (Auto) 0.500, Neut % (Auto) 83.1 H, Lymph % (Auto) 11.7 L, [place] % (Auto) 4.4, Eos % (Auto) 0.0, Baso % (Auto) 0.3, Absolute Neuts (auto) 9.9 H, Absolute Lymphs (auto) 1.39, Nucleated RBC % 0 06/12/22 05:22: PT 13.1, INR 1.0, APTT 42.6 H 06/12/22 05:22: Sodium 135 L, Potassium 4.1, Chloride 101, Carbon Dioxide 20.0 L , Anion Gap 14, BUN 16, Creatinine 0.78, Estim Creat Clear Calc 93.18, Est GFR (MDRD) Af Amer 102, Est GFR (MDRD) Non-Af 84, BUN/Creatinine Ratio 20.6 H, Glu cose 112 H, Calcium 9.9, Total Bilirubin 1.10 H, AST 22, ALT 35, Alkaline Phosphatase 74, Total Protein 8.6 H, Albumin 4.6, Globulin 4.0, Albumin/Globulin Ratio 1.2 Micro: Microbiology 06/11/22 11:15 Nasal Secretion SARS-CoV-2 Antigen (Rapid) - Final Cardiology Labs/Tests 06/12/22 05:22: WBC 11.9 H, RBC 4.73, Hgb 15.8 H, Hct 50.0 H, MCV 105.7 H, MCH 33.4 H, MCHC 31.6 L, Plt Count 295, MPV 9.8, Immature Gran % (Auto) 0.500, Neut % (Auto) 83.1 H, Lymph % (Auto) 11.7 L, [place] % (Auto) 4.4, Eos % (Auto) 0.0, Bas o % (Auto) 0.3, Absolute Neuts (auto) 9.9 H, Nucleated RBC % 0 06/12/22 05:22: PT 13.1, INR 1.0, APTT 42.6 H 06/12/22 05:22: Sodium 135 L, Potassium 4.1, Chloride 101, Carbon Dioxide 20.0 L , Anion Gap 14, BUN 16, Creatinine 0.78, Est GFR (MDRD) Af Amer 102, Est GFR (MDRD) Non-Af 84, BUN/Creatinine Ratio 20.6 H, Glucose 112 H, Calcium 9.9, Total Bilirubin 1.10 H Rhythm: EKG: ECHO: Stress Test: Cardiac Cath: PCI: CT Surgery: Holter monitor: EPS: PPM: CXR: Chest CT Scan: Physical Exam Const alert, oriented x3 and no apparent distress General Appearance: cooperative HEENT hearing grossly normal bilaterally Head and Scalp: atraumatic Eyes EOMs intact bilaterally Neck General: normal visual inspection Chest inspection of chest normal and palpation of chest normal Resp normal respiratory effort Auscultation: clear to auscultation bilaterally Cardio regular rate, regular rhythm, S1 normal heart sound and S2 normal heart sound Jugular Venous Distention: JVD GI normal to inspection, nondistended, normoactive bowel sounds Extremity normal capillary refill and no pedal edema Peripheral Pulses: Yes pulses 2+ throughout and femoral pulses present Skin no rashes or lesions noted Neuro oriented x3 and CN's II-XII intact bilaterally Psych Appearance: grossly normal and appropriate Assessment & Plan Assessment/Plan (1) NSTEMI, initial episode of care: PLAN: Patient was noted to have mild cardiac enzyme elevation. Cardiac catheterization today demonstrated no obstructive coronary disease. Suspect the above was secondary to demand ischemia from stress. Will recommend discharge for outpatient follow-up. This will be her primary physician. (2) Elevated BP without diagnosis of hypertension: PLAN: Patient can continue CARLOS ALBERTO inhibitor at the present time. Thank you for allowing me to participate in the care of your patient. Please don't hesitate to call if any issues arise.
--- NOTE | 2022-06-12 08:50 | CL.D_ITS ---
Patient Name: LIZ VILA Study Date: 06/12/2022 Performing: Mauricio Calderón MD Ht: 69 inches 175.26 cm : 1975 Wt: 249.12 lbs 113 kg Age: 46 Gender: female BSA: 2.27 PROCEDURE(S) PERFORMED [id number])LHC/COR/LV CLINICAL PROFILE AND INDICATIONS Indications: Suspected CAD Heart Failure: None Stress/Imaging Stress/Image Study Performed: No CAD Presentations: Non-STEMI. Symptom onset Date/Time: 06/10/22 Time Not Available CONCLUSIONS Normal coronary arteries Normal LV size, wall motion,and systolic function RECOMMENDATIONS Medical therapy DESCRIPTION OF PROCEDURE The patient arrived to the procedure lab. The risks and benefits of the procedure as well as a full description of our services here and current unavailability of surgical backup were fully explained to the patient and/or their significant other prior to the catheterization. The Timeout was completed, verifying the correct patient and procedure. The patient's procedural site was prepped and draped in the usual fashion. Local anesthetic was given subcutaneously to right radial region with Lidocaine 2%. Using a modified Seldinger technique, arterial access was obtained via the right radial artery, a 6Fr sheath was inserted. Right Coronary Artery selective angiography was then performed in multiple views using a 5 Fr. 4.0 [place] catheter. Left Coronary Artery selective angiography was performed in multiple views using a 5 Fr. 4.0 [place] catheter. Left Ventriculography was performed in [place]I projection using a 5 Fr. [place] catheter. LV to AO pullback pressures were then recorded.The arterial sheath was pulled and a TR Band was applied for hemostasis CORONARY ANGIOGRAPHY DOMINANCE: Right Dominant LEFT HEART ASSESSMENT Left Ventricular Ejection Fraction: by LV Gram 65 % Normal LV wall motion Normal Left Ventricular systolic function Normal Left Ventricular systolic function LEFT MAIN: Angiographically normal LEFT ANTERIOR DESCENDING ARTERY: Angiographically normal CIRCUMFLEX ARTERY: Angiographically normal RIGHT CORONARY ARTERY: Angiographically normal COMPLICATIONS No Complications PROCEDURE MEDICATIONS Fentanyl 50 mcg IV Versed 1 mg IV Versed 1 mg IV Heparin given IA 06/12/2022 08:28:49 Verapamil 2.5mg, Ntg 100mcgs, 3000 units of Heparin given IA 06/12/2022 08:28:49 SUMMARY OF HEMODYNAMIC DATA Time AIR REST ECG 08:11:48 AO 88/59 (71) SA 08:30:45 LV 110/6, 12 08:38:21 LV 108/7, 11 08:38:30 LV 117/8, 13 08:38:51 LV 110/8, 17 08:38:59 LVp 112/6, 13 08:39:04 AOp 121/-8 (72) 08:39:11 Signed By Mauricio Calderón MD On 06/12/2022 08:49:04 Mauricio Calderón MD
--- NOTE | 2022-06-12 10:02 | PCM.DC ---
Discharge Instructions Diet Discharge Diet: No restrictions Activity Discharge Activity: Return to Normal Activity Return to work on:: 06/15/22 Weight Bearing Status: Full weight bearing Follow Up Care Test Results: Test results from this visit will be discussed in further detail at your follow-up appointment, if applicable. Discharge Plan Admission Admit Date/Time: 06/10/22 05:01 Primary Reason for Your Visit: hypertension, elevated troponin Attending Provider: Morro Man Primary Care Provider: Matilda Preston Consulting Providers: Emma Barros Farouk Discharge Orders/Prescriptions Prescriptions: No Action NK Referrals / Follow Up: [facility] [Non-Staff] - See Referral Note (as scheduled) Carmen Back [employer] DEVELOPER, [employer] DEVELOPER-C [Non-Staff -Ordering Privileges] - 06/20/22 9:15 am (Your appt is at the [facility] in [place] ) Disposition Disposition (needs filled in before D/C Order can be placed): Home, Self Care
--- NOTE | 2022-06-12 10:18 | DS.PCM_ITS ---
Providers Date of Admission: 06/10/22 Date of Discharge: 06/12/22 Primary Care Physician: Dr. Matilda Preston MD Consultations 06/10/22 07:00 Consult: Cardiology Routine Consulting Provider: Kobe Sheets Reason for Consult: Chest pain, NSTEMI EMERGENT Consult: No MD Notified: Yes Date Notified: 06/10/22 Time Notified: 06:39 Method of Notification: Text Reason For Visit: NSTEMI Diagnosis Discharge Diagnosis (1) NSTEMI, initial episode of care: Status: Acute Code(s): I21.4 - Non-ST elevation (NSTEMI) myocardial infarction (2) Elevated BP without diagnosis of hypertension: Status: Acute Code(s): R03.0 - Elevated blood-pressure reading, without diagnosis of hypertension Plan 1. Elevated troponin-not indicative of non-STEMI, etiology unclear #2 nausea and vomiting-etiology unclear, patient will be treated symptomatically, she also had 1 episode of diarrhea today. #3 elevated blood pressure-we will monitor patient's blood pressure today, I do not feel that she needs additional medications for this at this time Total clinical time spent by myself addressing the patient's medical issues, reviewing all the data, and collaborating with patient's care team: 35 minutes Medications at Discharge Home Medications lisinopril 10 mg tablet 10 mg PO DAILY #30 tabs 06/12/22 Hospital Course Operations None Procedures 2-D Echocardiogram and Cardiac catheterization Summary of Care Provided Minutes Spent on Discharge: 31 Hospital Course: This 46-year-old white female was admitted directly to PCU from an outside hospital where she went for evaluation of chest pain, evaluation labs-patient's troponin was elevated, patient had a CTA of the chest which showed no evidence of pulmonary emboli, EKG showed no evidence of ischemic change. Patient was admitted to PCU for non-STEMI, she was seen in consultation by cardiology and underwent an echocardiogram which did not show any impairment of her EF. There is an echogenic abnormality in the right ventricle noted, patient underwent a cardiac catheterization which showed normal coronary arteries and no evidence of a right RV mass. Patient had a slightly elevated TSH at the referring hospital, she was not felt to be hypothyroid. On 06/12/2022, patient was seen and examined: On examination she appeared in good health and spirits, she does not appear to be in any distress. Vital signs as documented. Skin warm and dry and without overt rashes. Neck without JVD, thyroid appears normal, trachea is midline, neck is supple. Lungs clear, normal air movement was noted. Heart exam notable for regular rhythm, normal sounds and absence of murmurs, rubs or gallops. Abdomen unremarkable and without evidence of organomegaly, masses, or abdominal aortic enlargement, bowel sounds are pres ent in all 4 quadrants, no abdominal tenderness was noted. Extremities nonedematous, no cyanosis was noted, no clubbing was noted. Neuro: Cranial nerves II through XII are grossly intact, no focal motor deficits were noted, sensation to light touch and pinprick is intact, motor exam 5/5 throughout. Psych: Patient is alert and oriented x3, she does not appear anxious or depressed, she does not appear agitated. Cardiology did not feel the patient had a non-STEMI, this was ruled out with normal coronary arteries. Patient was discharged on 06/12/2022 to home in stable condition, she was placed on lisinopril 10 mg daily for blood pressure and [facility] Weight / BMI Weight Weight: 113 kg Body Mass Index (BMI) 37.1 ABG / Lab / Microbiology Data Result Diagrams: 06/12/22 05:22 06/12/22 05:22 Laboratory: Laboratory Results - last 24 hr 06/12/22 05:22: WBC 11.9 H, RBC 4.73, Hgb 15.8 H, Hct 50.0 H, MCV 105.7 H, MCH 33.4 H, MCHC 31.6 L, RDW Std Deviation 58.5 H, RDW Coeff of Alyse 14.8 H, Plt Count 295, MPV 9.8, Immature Gran % (Auto) 0.500, Neut % (Auto) 83.1 H, Lymph % (Auto) 11.7 L, [place] % (Auto) 4.4, Eos % (Auto) 0.0, Baso % (Auto) 0.3, Absolute Neuts (auto) 9.9 H, Absolute Lymphs (auto) 1.39, Nucleated RBC % 0 06/12/22 05:22: PT 13.1, INR 1.0, APTT 42.6 H 06/12/22 05:22: Sodium 135 L, Potassium 4.1, Chloride 101, Carbon Dioxide 20.0 L , Anion Gap 14, BUN 16, Creatinine 0.78, Estim Creat Clear Calc 93.18, Est GFR (MDRD) Af Amer 102, Est GFR (MDRD) Non-Af 84, BUN/Creatinine Ratio 20.6 H, Glucose 112 H, Calcium 9.9, Total Bilirubin 1.10 H, AST 22, ALT 35, Alkaline Phosphatase 74, Total Protein 8.6 H, Albumin 4.6, Globulin 4.0, Albumin/Globulin Ratio 1.2 Microbiology: Microbiology 06/11/22 11:15 Nasal Secretion SARS-CoV-2 Antigen (Rapid) - Final D/C Instructions Discharge Diet: No restrictions Return to work on: 06/15/22 Weight Bearing Status: Full weight bearing Meaningful Use Info Meaningful Use Diagnoses (Choose all that apply): None applicable Discharge Plan Admission Admit Date/Time: 06/10/22 04:04 Primary Reason for Your Visit: hypertension, elevated troponin Attending Provider: Morro Man Primary Care Provider: Matilda Preston Consulting Providers: Emma Barros ; Kobe Sheets Discharge Orders/Prescriptions Prescriptions: New lisinopril 10 mg tablet 10 mg PO DAILY Qty: 30 0RF Referrals / Follow Up: [facility] [Non-Staff] - See Referral Note (as scheduled) Carmen Back NP, DIE TRIPPER-C [Non-Staff -Ordering Privileges] - 06/20/22 9:15 am (Your appt is at the [facility] in [place] ) Disposition Disposition (needs filled in before D/C Order can be placed): Home, Self Care Charges/Coding Visit Charges Inpatient E&M: 64591 Disch Hosp >30min
== END 2022-06-12 11:51 | disposition home or self-care (01) | DRG 948 ==
PROVIDERS: Admitting Provider Family Medicine; PCP Internal Medicine; Visit Provider Internal Medicine
DX: R77.8 Other specified abnormalities of plasma proteins (principal); E66.9 Obesity, unspecified; F41.9 Anxiety disorder, unspecified; R11.2 Nausea with vomiting, unspecified; R19.7 Diarrhea, unspecified; F32.A Depression, unspecified; Z68.37 Body mass index [BMI] 37.0-37.9, adult; R03.0 Elevated blood-pressure reading, without diagnosis of hypertension; Z20.822 Contact with and (suspected) exposure to COVID-19; Z87.891 Personal history of nicotine dependence
CPT/HCPCS: 36415; 70450; 80053; 80061; 83735; 84100; 84484; 85025; 85610; 85730; 87426; 93005; 93306; 93458; 94668; 97802; 99152; 99153; 99252; 99406; J7030; Q9957; A4216; C1769; C1894; C8929; G0463; J2405